=== PATIENT | female | born 1950 | race Caucasian/White ===

== ENCOUNTER 2017-10-10 17:30 | Observation (INO) | payer MEDICARE ==
[~2017-10-10] VITALS: Ht 157.5 cm; Wt 53.1 kg
[~2017-10-10 17:30] MED LIST: ACETAMINOPHEN325 MG PO; ADVAIR HFA [SP]12 GM INH; ASCORBIC ACID500 MG PO; ATARAX 25 MG TA25 MG PO; BAYER CHEWABLE81 MG PO; CELEXA10 MG PO; COLACE100 MG PO; COREG 3.1253.125 MG PO; COREG25 MG PO; DIOVAN320 MG PO; DULCOLAX10 MG/SUPP RC; FLORAJEN3 CAPS460 MG PO; FLORANEX / LACT1 TAB PO; FOSRENOL1000 MG PO; GABAPENTIN100 MG PO; GLYCOLAX527 GM PO; HYDRALAZINE HC100 MG PO; HYDROCODON-ACE1 EAC7 PO; KAYEXALATE15 G/60 ML PO; LASIX20 MG PO; LEVAQUIN500 MG PO; LISINOPRIL10 MG PO; MUCINEX600 MG PO; MULTIPLE VITAMI1 TA1 PO; NEURONTIN 300300 MG PO; NICODERM C1 PATCH .1 TRANSDERM; NIFEDIPINE ER60 MG PO; NORVASC5 MG PO; OMNICEF300 MG PO; PLAVIX75 MG PO; PROAIR HFA8.5 GM INH; PROTONIX40 MG PO; REMERON15 MG PO; RENA-VITE TABL0.8 MG PO; RENAGEL800 MG PO; RENVELA2.4 GM PO; SINGULAIR10 MG PO; XANAX0.25 MG PO; ZOFRAN4 MG PO
[2017-10-10 18:39] VITALS: BP 166/70
[2017-10-10 19:21] LABS: BASOPHILS 0.2 % (0-2); EOSINOPHILS 1.8 % (0-7); HEMOGLOBIN 10.8 g/dL (12-16); IMMATURE GRANULOCYTES 0.3 % (0-5); LYMPHOCYTES 12.6 % (15-50); MCH 32.7 pg (26.0-34.0); MCHC 30.9 g/dL (31.0-37.0); MCV 106.1 fL (80.0-100.0); MEAN PLATELET VOLUME 9.7 fL (7.4-10.4); MONOCYTES 5.2 % (2-11); NEUTROPHILS 79.9 % (40-80); PLATELET COUNT 166 10x3/uL (130-400); RDW 14.9 % (11.5-14.5); WBC 15.2 10x3/uL (4.8-10.8)
[2017-10-10 19:36] LABS: ALBUMIN 3.6 g/dL (3.4-5.0); ALKALINE PHOSPHATASE 109 U/L (46-116); ALT (SGPT) 39 U/L (10-68); CALC OSMOLALITY 301 mosm/kg (275-300); CALCIUM 10.1 mg/dL (8.5-10.1); CHLORIDE - SERUM 102 mmol/L (98-107); CREATININE - SERUM 7.8 mg/dL (0.6-1.3); POTASSIUM - SERUM 5.8 mmol/L (3.5-5.1); PROTEIN - SERUM 7.7 g/dL (6.4-8.2); SODIUM 144 mmol/L (136-145); UREA NITROGEN 52 mg/dL (7-18); eGFR NON AFRICAN AMERICAN 5 mL/min (90-120)
[2017-10-10 19:43] LABS: GLUCOSE 125 mg/dL (74-106)
[2017-10-10 19:45] VITALS: BP 178/87
[2017-10-10 19:52] LABS: CREATINE KINASE 20 UL (21-215)
[2017-10-10 19:54] LABS: PRO BNP 40525 pg/mL (0-125)
[2017-10-10 19:55] LABS: TROPONIN-I 0.133 ng/mL (0.000-0.060)
[2017-10-10 22:04] VITALS: BP 178/75
[2017-10-11 03:12] VITALS: BP 153/61; BMI 22.0
[2017-10-11] MEDS ORDERED: RENA-VITE TABL0.8 MG PO (04:05)
[2017-10-11] MEDS ORDERED: SPS SUSPENSION (04:09)
[2017-10-11] MEDS ORDERED: FOSRENOL1000 MG PO (04:15)
[2017-10-11] MEDS ORDERED: RENVELA800 MG PO (04:52)
[2017-10-11 05:30] LABS: BASOPHILS 0.2 % (0-2); EOSINOPHILS 3.4 % (0-7); HEMATOCRIT 30.4 % (36.0-48.0); HEMOGLOBIN 9.4 g/dL (12-16); IMMATURE GRANULOCYTES 0.3 % (0-5); MCH 32.2 pg (26.0-34.0); MCHC 30.9 g/dL (31.0-37.0); MEAN PLATELET VOLUME 9.9 fL (7.4-10.4); MONOCYTES 6.5 % (2-11); NEUTROPHILS 58.6 % (40-80); PLATELET COUNT 175 10x3/uL (130-400); RBC 2.92 10x6/uL (4.00-5.40); RDW 14.8 % (11.5-14.5)
[2017-10-11 05:43] LABS: MCV 104.1 fL (80.0-100.0)
[2017-10-11 06:18] LABS: ALBUMIN 3.2 g/dL (3.4-5.0); BILIRUBIN - TOTAL 0.36 mg/dL (0.2-1.3); CALCIUM 9.7 mg/dL (8.5-10.1); CARBON DIOXIDE 27.4 mmol/L (21.0-32.0); CREATININE - SERUM 8.4 mg/dL (0.6-1.3); POTASSIUM - SERUM 5.4 mmol/L (3.5-5.1); PROTEIN - SERUM 6.7 g/dL (6.4-8.2)
[2017-10-11 09:53] VITALS: BP 172/67
[2017-10-11 12:54] VITALS: Ht 157.5 cm; Wt 53.1 kg
[2017-10-11 16:45] VITALS: BP 148/50
[2017-10-11 20:00] VITALS: BP 147/51
[2017-10-12] VITALS: BP 152/49
[2017-10-12 04:00] VITALS: BP 158/59
[2017-10-12 08:29] VITALS: BP 150/62
[2017-10-12 11:45] VITALS: BP 145/49
== END 2017-10-12 16:36 ==
LOC: D.ER 17:30 → D.EDHOLD 21:05 → OBSVTIME 21:05 → D.MS 23:35 → D.M2 10-11 18:47
PROVIDERS: Family Medicine; Internal Medicine Nephrology
DX: E87.5 Hyperkalemia (principal); I13.2 Hypertensive heart and chronic kidney disease with heart failure and with stage 5 chronic kidney disease, or end stage renal disease; I50.9 Heart failure, unspecified; N18.6 End stage renal disease; Z99.2 Dependence on renal dialysis; J44.9 Chronic obstructive pulmonary disease, unspecified; I69.351 Hemiplegia and hemiparesis following cerebral infarction affecting right dominant side; I25.10 Atherosclerotic heart disease of native coronary artery without angina pectoris; Z95.5 Presence of coronary angioplasty implant and graft

== ENCOUNTER 2017-10-18 01:58 | Inpatient (IN) | payer MEDICARE ==
[~2017-10-18] VITALS: Ht 157.5 cm; Wt 53.1 kg
--- NOTE | ~2017-10-18 | DS ---
PATIENT:PARISH DAMICO :[birth year] MEDICAL RECORD: [id number] DISCHARGE SUMMARY ADMISSION DATE: 10/18/17 DISCHARGE DATE: 10/20/17 HISTORY OF PRESENT ILLNESS: Ms. Damico is a 66-year-old white female with end-stage renal disease and chronic care home confinement, seen by me on a monthly basis in [facility]. Was seen by me 2 weeks ago and stable. Current history dates to the evening of admission with the onset of shortness of breath. She had not missed her dialysis. Apparently, there had been a large fluid intake, was found in Emergency Room to have not only volume fluid overload and pulmonary edema, but also to have hyperkalemia with potassium of 5.9. HOSPITAL COURSE: She underwent emergent dialysis. Her medications were readjusted and she was back to baseline at the time of discharge. She had no major intercurrent events. Her last lab and vital signs all were stable and she was requesting discharge back to care home. DISCHARGE DIAGNOSES: 1. Acute pulmonary edema with biventricular cardiac failure on the basis of volume overload due to excessive fluid intake at the care home. 2. Hyperkalemia due to oral intake, resolved post-dialysis. 3. End-stage renal disease. 4. Hypertension. 5. Chronic erythropoietin dependent anemia. PLAN: The patient will be discharged back to the care home following dialysis today. I will see her in [facility] next week. She will continue her renal diet, ambulation as tolerated. DISCHARGE MEDICATIONS. We will continue Epogen in the dialysis unit, Nephro-Cheko 1 daily, Renvela 800 t.i.d., Coreg 3.125 daily, MiraLax p.r.n., Protonix 20 mg daily, Singulair 10 mg bedtime, Remeron 7.5 bedtime, Neurontin 100 t.i.d., baby aspirin 1 daily, Xanax 0.25 at bedtime, Plavix 75 mg daily. TRANSINT:[id number] Voice Confirmation ID: [id number] DOCUMENT ID: [id number] ROSA JANG MD at 0653 CC: [id number] DICTATION DATE: 10/20/17 0732 NURSE GENERAL DUTY: 10/20/17 0836 DIS IN 10/20/17 [id number] [place] [address]
[~2017-10-18 01:58] MED LIST changes: +RENVELA800 MG PO; +SPS SUSPENSION
[2017-10-18] MEDS ORDERED: CALMOSEPTINE OI71 GM TOPICAL (02:32)
[2017-10-18] MEDS ORDERED: KAYEXALATE15 G/60 ML PO (02:34)
[2017-10-18 02:38] VITALS: BP 176/77; BMI 21.4
[2017-10-18 05:13] VITALS: BP 147/46
[2017-10-18 07:54] LABS: BASOPHILS 0.1 % (0-2); EOSINOPHILS 0.1 % (0-7); HEMOGLOBIN 9.4 g/dL (12-16); IMMATURE GRANULOCYTES 0.3 % (0-5); LYMPHOCYTES 13.8 % (15-50); MCH 32.1 pg (26.0-34.0); MCHC 31.3 g/dL (31.0-37.0); MCV 102.4 fL (80.0-100.0); MEAN PLATELET VOLUME 9.7 fL (7.4-10.4); MONOCYTES 2.5 % (2-11); NEUTROPHILS 83.2 % (40-80); PLATELET COUNT 233 10x3/uL (130-400); RBC 2.93 10x6/uL (4.00-5.40); RDW 15.7 % (11.5-14.5); WBC 7.8 10x3/uL (4.8-10.8)
[2017-10-18 08:05] VITALS: BP 122/38
[2017-10-18 08:37] LABS: CARBON DIOXIDE 25.5 mmol/L (21.0-32.0); CREATININE - SERUM 8.8 mg/dL (0.6-1.3)
[2017-10-18 08:49] LABS: ANION GAP 22.4 mmol/L (8-16); POTASSIUM - SERUM 5.9 mmol/L (3.5-5.1)
[2017-10-18 13:23] VITALS: Ht 157.5 cm; Wt 53.1 kg
[2017-10-18 14:41] VITALS: BP 131/50
[2017-10-18 16:01] VITALS: BP 128/54
[2017-10-18 20:37] VITALS: BP 102/36
[2017-10-19 00:41] VITALS: BP 143/85
[2017-10-19 05:30] VITALS: BP 150/58
[2017-10-19 05:51] LABS: BASOPHILS 0.1 % (0-2); EOSINOPHILS 1.1 % (0-7); HEMATOCRIT 29.7 % (36.0-48.0); HEMOGLOBIN 9.3 g/dL (12-16); IMMATURE GRANULOCYTES 0.3 % (0-5); LYMPHOCYTES 24.9 % (15-50); MCH 32.2 pg (26.0-34.0); MCHC 31.3 g/dL (31.0-37.0); MCV 102.8 fL (80.0-100.0); MEAN PLATELET VOLUME 9.9 fL (7.4-10.4); MONOCYTES 7.9 % (2-11); NEUTROPHILS 65.7 % (40-80); PLATELET COUNT 235 10x3/uL (130-400); RBC 2.89 10x6/uL (4.00-5.40); RDW 15.9 % (11.5-14.5)
[2017-10-19 05:59] LABS: WBC 12.1 10x3/uL (4.8-10.8)
[2017-10-19 06:25] LABS: ANION GAP 17.8 mmol/L (8-16); CALCIUM 10.5 mg/dL (8.5-10.1); CARBON DIOXIDE 27.8 mmol/L (21.0-32.0); PHOSPHOROUS 7.5 mg/dL (2.5-4.9)
[2017-10-19 06:27] LABS: CREATININE - SERUM 6.2 mg/dL (0.6-1.3); POTASSIUM - SERUM 4.6 mmol/L (3.5-5.1)
[2017-10-19 08:05] VITALS: BP 170/60
[2017-10-19 11:41] VITALS: BP 129/42
[2017-10-19 15:48] VITALS: BP 150/48
[2017-10-19 21:41] VITALS: BP 165/56
[2017-10-20 06:20] VITALS: BP 182/56
[2017-10-20 06:48] LABS: ANION GAP 20.7 mmol/L (8-16); CALCIUM 9.6 mg/dL (8.5-10.1); CARBON DIOXIDE 27.9 mmol/L (21.0-32.0); PHOSPHOROUS 7.3 mg/dL (2.5-4.9); POTASSIUM - SERUM 4.6 mmol/L (3.5-5.1)
[2017-10-20 06:50] LABS: CREATININE - SERUM 7.8 mg/dL (0.6-1.3)
[2017-10-20 07:14] LABS: BASOPHILS 0.3 % (0-2); EOSINOPHILS 3.7 % (0-7); HEMATOCRIT 28.5 % (36.0-48.0); IMMATURE GRANULOCYTES 0.3 % (0-5); LYMPHOCYTES 40.2 % (15-50); MCH 32.1 pg (26.0-34.0); MCHC 31.6 g/dL (31.0-37.0); MCV 101.8 fL (80.0-100.0); MEAN PLATELET VOLUME 9.8 fL (7.4-10.4); MONOCYTES 6.1 % (2-11); NEUTROPHILS 49.4 % (40-80); PLATELET COUNT 223 10x3/uL (130-400); RDW 15.9 % (11.5-14.5); WBC 10.8 10x3/uL (4.8-10.8)
[2017-10-20 08:28] VITALS: BP 144/43
[2017-10-20] MEDS ORDERED: NEPHRO-VITE RX1 TAB PO (13:06)
[2017-10-20 16:09] VITALS: BP 154/49
== END 2017-10-20 16:16 | DRG 291 ==
LOC: D.MS 01:58
PROVIDERS: Internal Medicine Nephrology
PROC: 5A1D70Z Performance of Urinary Filtration, Intermittent, Less than 6 Hours Per Day (ICD-10-PCS; principal; 2017-10-18)
DX: I13.2 Hypertensive heart and chronic kidney disease with heart failure and with stage 5 chronic kidney disease, or end stage renal disease (principal); N18.6 End stage renal disease; R09.2 Respiratory arrest; I69.351 Hemiplegia and hemiparesis following cerebral infarction affecting right dominant side; J44.1 Chronic obstructive pulmonary disease with (acute) exacerbation; E87.5 Hyperkalemia; Z99.2 Dependence on renal dialysis; D63.1 Anemia in chronic kidney disease; I25.10 Atherosclerotic heart disease of native coronary artery without angina pectoris; I50.82 Biventricular heart failure

== ENCOUNTER 2017-11-29 07:09 | Inpatient (IN) | payer MEDICARE ==
[~2017-11-29] VITALS: Ht 157.5 cm; Wt 50.9 kg
[2017-11-29] VITALS (7 sets, daily range): BP systolic 126–171; BP diastolic 42–62; Ht 157.5 cm; Wt 50.9 kg
[~2017-11-29 07:09] MED LIST changes: +CALMOSEPTINE OI71 GM TOPICAL; +NEPHRO-VITE RX1 TAB PO
[2017-11-29] MEDS ORDERED: NORVASC5 MG PO (07:52)
[2017-11-29] MEDS ORDERED: COREG12.5 MG PO (07:54)
[2017-11-29] MEDS ORDERED: CELEXA10 MG PO (07:55)
[2017-11-29] MEDS ORDERED: CATAPRES0.1 MG PO (07:57)
[2017-11-29] MEDS ORDERED: FUROSEMIDE20 MG PO (07:59)
[2017-11-29] MEDS ORDERED: MUCINEX600 MG PO (08:00)
[2017-11-29] MEDS ORDERED: HYDRALAZINE HC100 MG PO (08:01)
[2017-11-29] MEDS ORDERED: ZESTRIL10 MG PO (08:02)
[2017-11-29] MEDS ORDERED: CLARITIN 10 MG10 MG PO (08:03)
[2017-11-29] MEDS ORDERED: MOBIC7.5 MG PO (08:03)
[2017-11-29] MEDS ORDERED: FLINTSTONE1 TAB.CHEW PO (08:04)
[2017-11-29] MEDS ORDERED: NIFEDIPINE ER60 MG PO (08:04)
[2017-11-29] MEDS ORDERED: ESTER-C 500 MG1 TAB PO (08:06)
[2017-11-29] MEDS ORDERED: GLYCOLAX527 GM PO (08:06)
[2017-11-29] MEDS ORDERED: NICODERM C1 PATCH .1 TRANSDERM (08:06)
[2017-11-29] MEDS ORDERED: DIOVAN320 MG PO (08:06)
[2017-11-30 05:48] LABS: BASOPHILS 0.3 % (0-2); EOSINOPHILS 5.5 % (0-7); HEMATOCRIT 33.2 % (36.0-48.0); HEMOGLOBIN 10.2 g/dL (12-16); IMMATURE GRANULOCYTES 0.2 % (0-5); LYMPHOCYTES 36.7 % (15-50); MCH 32.6 pg (26.0-34.0); MCHC 30.7 g/dL (31.0-37.0); MCV 106.1 fL (80.0-100.0); MONOCYTES 7.2 % (2-11); NEUTROPHILS 50.1 % (40-80); PLATELET COUNT 199 10x3/uL (130-400); RBC 3.13 10x6/uL (4.00-5.40); RDW 16.1 % (11.5-14.5)
[2017-11-30 06:07] LABS: ANION GAP 13.6 mmol/L (8-16); CALCIUM 9.3 mg/dL (8.5-10.1); CARBON DIOXIDE 30.2 mmol/L (21.0-32.0); CREATININE - SERUM 6.6 mg/dL (0.6-1.3); PHOSPHOROUS 5.4 mg/dL (2.5-4.9); POTASSIUM - SERUM 4.8 mmol/L (3.5-5.1); VANCOMYCIN - RANDOM 7.8 ug/mL (10.0-20.0)
[2017-11-30 08:56] VITALS: BP 117/53
[2017-11-30 11:26] VITALS: BP 140/53
[2017-11-30] MEDS ORDERED: LEVAQUIN250 MG PO (12:44)
[2017-11-30] MEDS ORDERED: IPRAT-ALBUT 0.5-3 ML UPD (12:45)
[2017-11-30 15:10] VITALS: BP 126/45
== END 2017-11-30 16:36 | DRG 291 ==
LOC: OBSVTIME → D.ICU 07:09 → D.OPS 07:09 → OBSVTIME 07:09 → D.ICU 08:58 → D.M2 08:58 → D.ICU 08:58 → D.M2 13:54 → D.ICU 13:54 → D.M2 11-30 16:36
PROVIDERS: Internal Medicine Nephrology
DX: I13.2 Hypertensive heart and chronic kidney disease with heart failure and with stage 5 chronic kidney disease, or end stage renal disease (principal); N18.6 End stage renal disease; J81.1 Chronic pulmonary edema; I69.351 Hemiplegia and hemiparesis following cerebral infarction affecting right dominant side; I50.9 Heart failure, unspecified; Z99.2 Dependence on renal dialysis; E87.5 Hyperkalemia; J44.9 Chronic obstructive pulmonary disease, unspecified; Z91.19 Patient's noncompliance with other medical treatment and regimen

== ENCOUNTER 2018-03-03 13:51 | Observation (INO) | payer MEDICARE ==
[~2018-03-03] VITALS: Ht 157.5 cm; Wt 52.2 kg
--- NOTE | ~2018-03-03 | MORECARE ---
CASE MANAGEMENT DISCHARGE SUMMARY PATIENT: PARISH MOBLEY UNIT: [id number] ADM DATE: 03/03/18 AGE: 67 : 49 SEX: F ROOM/BED: D.5302 AUTHOR: JAVON COTTON PHYSICIAN: REFERRING PHYSICIAN: DOMITILA OLIVEIRA MD DATE OF SERVICE: 03/04/18 Discharge Plan Patient Name: PARISH MOBLEY Facility: [facility]:[place] : 1950 Planned Disposition: Nursing Facility [facility] Cert Anticipated Discharge Date: 03/04/18 Discharge Date: Expected LOS: 1 Initial Reviewer: [email or web address] Initial Review Date: 03/04/2018 Generated: 03/04/18 4:54 pm DCPIA - Discharge Planning Initial Assessment Updated by [email or web address]: Singh Owen on 03/04/18 3:52 pm * Is the patient Alert and Oriented? Yes * How many steps to enter\exit or inside your home? NONE * PCP DR. YEUNG * [facility] * Preadmission Environment Fixed Wing Aircraft Crew Chief Detention * Facility Name [facility] * ADLs Partial Dependent * Partial ADLs (Assistance needed) Ambulation Bathing Medication Management Transfers * Equipment Other * Other Equipment OXYGEN AT NIGHT ONLY ALL EQUIPMENT PROVIDED BY [facility] * List name and contact numbers for known caregivers / representatives who currently or will assist patient after discharge: UNCLE WILEY, NICOLA MOBLEY, DTR, * Verbal permission to speak to the caregivers and representatives has been obtained from the patient. Yes * Community resources currently utilized Other * Please name any agencies selected above. [facility] [place] [facility], [address], [facility] * Additional services required to return to the preadmission environment? No * Can the patient safely return to the preadmission environment? Yes * Has this patient been hospitalized within the prior 30 days at any hospital? No Last DP export: 03/04/18 2:25 Patient Name: PARISH MOBLEY Page [id number] at 0990 All edits/amendments must be made on the electronic document DICTATION DATE: 03/04/18 4888 SOLID WASTE COLLECTION WORKER: PATRICIA 03/04/18 1554 RPT#: [id number] DC DATE: STATUS: ADM IN [facility] [address] [place] [address] END OF REPORT
--- NOTE | ~2018-03-03 | MORECARE ---
CASE MANAGEMENT DISCHARGE SUMMARY PATIENT: PARISH MOBLEY UNIT: [id number] ADM DATE: 03/03/18 AGE: 67 : 49 SEX: F ROOM/BED: D.3496 AUTHOR: JAVON COTTON PHYSICIAN: REFERRING PHYSICIAN: DOMITILA OLIVEIRA MD DATE OF SERVICE: 03/04/18 Discharge Plan Patient Name: PARISH MOBLEY [facility] [facility] 1950 Planned Disposition: Nursing Facility [facility] Cert Anticipated Discharge Date: 03/04/18 Discharge Date: Expected LOS: 1 Initial Reviewer: [email or web address] Initial Review Date: 03/04/2018 Generated: 03/04/18 4:25 pm External Providers External Provider: [facility] Next Contact Date: 03/04/2018 Service Request Date: Service Type: Resolution: Reviewer: Comments: Patient Name: PARISH MOBLEY Page [id number] at 1525 All edits/amendments must be made on the electronic document DICTATION DATE: 03/04/18 1525 CONSTRUCTION HELPER: PATRICIA 03/04/18 1525 RPT#: [id number] OR DATE: STATUS: ADM IN [facility] [address] [place] [address] END OF REPORT
--- NOTE | ~2018-03-03 | MORECARE ---
CASE MANAGEMENT DISCHARGE SUMMARY PATIENT: PARISH MOBLEY UNIT: [id number] ADM DATE: 03/03/18 AGE: 67 : 49 SEX: F ROOM/BED: D.6784 AUTHOR: LULA,DOC PHYSICIAN: REFERRING PHYSICIAN: DOMITILA OLIVEIRA MD DATE OF SERVICE: 03/04/18 Discharge Plan Patient Name: PARISH MOBLEY Facility: [facility]:[place] : 1950 Planned Disposition: Nursing Facility [facility] Cert Anticipated Discharge Date: 03/04/18 Discharge Date: Expected LOS: 1 Initial Reviewer: [email or web address] Initial Review Date: 03/04/2018 Generated: 03/04/18 5:02 pm Comments DCP- Discharge Planning Updated by [email or web address]: Singh Owen on 03/04/18 2:[address] Patient Name: PARISH MOBLEY Admission Status: ER Accout number: [id number] Admission Date: 03-03-2018 : 1950 Admission Diagnosis: Attending: DOMITILA OLIVEIRA Current LOS: 1 Anticipated DC Date: 03-04-2018 Planned Disposition: Nursing Facility [facility] Cert Primary Insurance: MEDICARE A & B PLANNED EXTERNAL PROVIDER: [employer], LONG TERM CARE MEDICAID BED Discharge Planning Comments: CM RECEIVED DISCHARGE ORDERS, ATTEMPTED TO MEET WITH PT IN ROOM AT 1200 AND 1400 HOURS, PT OUT TO DIALYSIS. CM MET WITH PT UPON HER RETURN. PT REPORTS LIVING AT [facility], IS ON OXYGEN AT NIGHT ONLY AND GOES TO DIALYSIS IN [place] ON MWF SCHEDULE, TRANSPORT BY THE [facility]. PT ASKED CM TO HURRY UP AND CALL [facility] SO THE [facility] WILL PICK HER UP REPORTING THEY LEAVE AT 4PM. CM CALLED [facility], , SPOKE TO SOFÍA WHO REPORTS THEY WILL ACCEPT PT TODAY, THEY DO NOT HAVE A VAN FOR TRANSPORT, ASKED CM TO CALL FAMILY TO GET TRANSPORTATION BACK TO [facility]. YAYO Boyce REPORTS PT SHOULD NOT NEED OXYGEN, SHE IS ONLY ON NIGHTTIME OXYGEN AT THE [facility]. CM SPOKE TO PT WHO ASKED CM TO CALL [facility] OR [facility]. CM CALLED [facility] ESC[facility], ; [facility] REPORTS HE AND NICOLA ARE IN [place] [employer] AND CAN LEAD JAVA DEVELOPER ARCHITECT PT IN A COUPLE OF HOURS AND TRANSPORT BACK TO [facility]. CM NOTIFIED PT AND BEDSIDE NURSE. CM FAXED DISCHARGE INFORMATION TO [facility] AT [phone]. NURSE REPORT TO BE CALLED TO SOFÍA AT [facility] AT [phone]. FAMILY TO TRANSPORT. Upholstery Department Supervisor: Singh Owen DCPIA - Discharge Planning Initial Assessment Updated by [email or web address]: Singh Owen on 03/04/18 3:52 pm * Is the patient Alert and Oriented? Yes * How many steps to enter\exit or inside your home? NONE * PCP DR. YEUNG * [facility] * Preadmission Environment Char Conveyor Tender Mcfp * Facility Name [facility] * ADLs Partial Dependent * Partial ADLs (Assistance needed) Ambulation Bathing Medication Management Transfers * Equipment Other * Other Equipment OXYGEN AT NIGHT ONLY ALL EQUIPMENT PROVIDED BY [facility] * List name and contact numbers for known caregivers / representatives who currently or will assist patient after discharge: UNCLE WILEY, NICOLA MOBLEY DTR, * Verbal permission to speak to the caregivers and representatives has been obtained from the patient. Yes * Community resources currently utilized Other * Please name any agencies selected above. [facility], [facility] [place], MWF, [address]130, [facility] * Additional services required to return to the preadmission environment? No * Can the patient safely return to the preadmission environment? Yes * Has this patient been hospitalized within the prior 30 days at any hospital? No Last DP export: 03/04/18 2:54 Patient Name: PARISH MOBLEY Page [id number] at 1602 All edits/amendments must be made on the electronic document DICTATION DATE: 03/04/18 1601 AURIST: PATRICIA 03/04/18 1601 RPT#: [id number] DC DATE: STATUS: ADM IN [facility] [address] [place] [address] END OF REPORT
--- NOTE | ~2018-03-03 | EC ---
PATIENT:PARISH MOBLEY DATE OF SERVICE: 03/03/18 SEX: F MEDICAL RECORD: [id number] DATE OF : [birth year] LOCATION:D.M2 D.211 AGE OF PATIENT: 67 ADMISSION DATE: 03/03/18 REFERRING PHYSICIAN: INTERPRETING PHYSICIAN: MAYA SAHA MD ECHOCARDIOGRAM REPORT ECHO CHARGES 4 ECHO COMPLETE Date: 03/04/18 CLINICAL DIAGNOSIS: CHEST PAIN HX CAD ECHOCARDIOGRAPHIC MEASUREMENTS (adult normal given) AC root (d.<3.7cm) 3.0 cm LV Septum d (<1.2 cm> 1.3 cm Valve Excursion 0.6 cm LV Septum (systole) 1.4 cm Left Atria (s.<4.0cm> 5.2 cm LVPW d(<1.2cm) 1.5 cm RV (d.<2.3cm) 3.1 cm LVPW (sytole) 1.6 cm LV diastole(<5.6CM) 5.7 cm MV E-F(>70mm/sec) cm LV systole 4.3 cm LVOT Diameter 1.3 cm MV exc.(>10mm) 1.3 cm Est.ejection fraction (50-75%) % DOPPLER: LVIT cm/sec A 114 cm/sec E 141 cm/sec LA cm/sec RVSP 28 mmHg LVOT 147 cm/sec AOP1/2T m/s Asc. Ao 207 cm/sec RVOT 69 cm/sec RA cm/sec PA 159 cm/sec AV Gradient Peak 17.12mmHg AV Mean 9.58 mmHg AV Area 1.0 cm MV Gradient Peak 14.44mmHg MV Mean 4.49 mmHg MV Area cm COMMENTS: Program Writer: 2 ROHIT WILLIS Granite [employer] Terrazzo Finisher: 4 Dr. Saha TAPE# PACS Pericardial Effusion N DATE OF SERVICE: PROCEDURE: Transthoracic echocardiogram. FINDINGS: 1. Left ventricle has mild concentric left ventricular hypertrophy, ejection fraction of 65%. Inflow characteristics consistent with mild diastolic dysfunction. 2. The left atrium is moderately dilated. 3. The aortic valve has moderate aortic stenosis, peak pressure gradient of 20 ECHOCARDIOGRAM REPORT [id number] PARISH MOBLEY mmHg. 4. The mitral valve has mild mitral regurgitation. 5. Tricuspid valve has mild tricuspid regurgitation. RVSP of 28 mmHg. 6. The right ventricle is mildly dilated. CONCLUSIONS: The patient has evidence of mild hypertensive heart disease with left ventricular hypertrophy, preserved LV systolic function. The patient has evidence of [id number] aortic stenosis. TRANSINT:[id number] Voice Confirmation ID: [id number] DOCUMENT ID: [id number] MAYA SAHA MD at 0916 CC: [id number] DICTATION DATE: 03/04/18 1313 ECOTHERAPIST: 03/04/18 1515 DIS IN 03/04/18 [address] [id number] [place] [id number]
[~2018-03-03 13:51] MED LIST changes: +CATAPRES0.1 MG PO; +CLARITIN 10 MG10 MG PO; +COREG12.5 MG PO; +ESTER-C 500 MG1 TAB PO; +FLINTSTONE1 TAB.CHEW PO; +FUROSEMIDE20 MG PO; +IPRAT-ALBUT 0.5-3 ML UPD; +LEVAQUIN250 MG PO; +MOBIC7.5 MG PO; +ZESTRIL10 MG PO
[2018-03-03 14:41] VITALS: BP 157/47
[2018-03-03 14:41] LABS: BASOPHILS 0.2 % (0-2); EOSINOPHILS 0.9 % (0-7); HEMATOCRIT 34.1 % (36.0-48.0); HEMOGLOBIN 10.3 g/dL (12-16); IMMATURE GRANULOCYTES 0.2 % (0-5); LYMPHOCYTES 6.9 % (15-50); MCH 30.1 pg (26.0-34.0); MCHC 30.2 g/dL (31.0-37.0); MCV 99.7 fL (80.0-100.0); MEAN PLATELET VOLUME 10.4 fL (7.4-10.4); MONOCYTES 2.1 % (2-11); NEUTROPHILS 89.7 % (40-80); PLATELET COUNT 214 10x3/uL (130-400); RBC 3.42 10x6/uL (4.00-5.40); RDW 16.6 % (11.5-14.5); WBC 12.5 10x3/uL (4.8-10.8)
[2018-03-03 14:48] LABS: ALBUMIN 3.2 g/dL (3.4-5.0); ALKALINE PHOSPHATASE 83 U/L (46-116); ALT (SGPT) 13 U/L (10-68); BILIRUBIN - TOTAL 1.01 mg/dL (0.2-1.3); CALC OSMOLALITY 287 mosm/kg (275-300); CALCIUM 10.2 mg/dL (8.5-10.1); CARBON DIOXIDE 28.2 mmol/L (21.0-32.0); CHLORIDE - SERUM 102 mmol/L (98-107); CREATININE - SERUM 4.2 mg/dL (0.6-1.3); GLUCOSE 110 mg/dL (74-106); POTASSIUM - SERUM 3.7 mmol/L (3.5-5.1); PROTEIN - SERUM 6.9 g/dL (6.4-8.2); SODIUM 142 mmol/L (136-145); UREA NITROGEN 25 mg/dL (7-18); eGFR NON AFRICAN AMERICAN 11 mL/min (90-120)
[2018-03-03 14:57] LABS: APTT 40.7 SECONDS (22.8-39.4)
[2018-03-03 14:58] LABS: INR 1.19 (0.85-1.17); PROTIME 14.6 SECONDS (11.6-15.0)
[2018-03-03 15:05] LABS: CKMB 0.8 U/L (0.0-3.6); CREATINE KINASE 15 UL (21-215); MAGNESIUM - SERUM 2.1 mg/dL (1.8-2.4)
[2018-03-03 15:30] LABS: TROPONIN-I 1.393 ng/mL (0.000-0.060)
[2018-03-03 16:27] VITALS: BP 177/56; BMI 21.0
[2018-03-03 20:31] LABS: TROPONIN-I 1.122 ng/mL (0.000-0.060)
[2018-03-04 01:49] LABS: BASOPHILS 0.1 % (0-2); EOSINOPHILS 0.1 % (0-7); HEMATOCRIT 28.1 % (36.0-48.0); HEMOGLOBIN 8.6 g/dL (12-16); IMMATURE GRANULOCYTES 0.1 % (0-5); LYMPHOCYTES 14.5 % (15-50); MCH 29.8 pg (26.0-34.0); MCHC 30.6 g/dL (31.0-37.0); MEAN PLATELET VOLUME 9.9 fL (7.4-10.4); MONOCYTES 6.8 % (2-11); NEUTROPHILS 78.4 % (40-80); PLATELET COUNT 208 10x3/uL (130-400); RBC 2.89 10x6/uL (4.00-5.40); RDW 16.5 % (11.5-14.5)
[2018-03-04 01:56] LABS: MCV 97.2 fL (80.0-100.0); WBC 6.8 10x3/uL (4.8-10.8)
[2018-03-04 02:25] LABS: ALBUMIN 2.7 g/dL (3.4-5.0); ALKALINE PHOSPHATASE 74 U/L (46-116); ALT (SGPT) 15 U/L (10-68); BILIRUBIN - TOTAL 0.85 mg/dL (0.2-1.3); CARBON DIOXIDE 25.2 mmol/L (21.0-32.0); CHLORIDE - SERUM 101 mmol/L (98-107); CKMB 0.9 U/L (0.0-3.6); CREATINE KINASE 15 UL (21-215); GLUCOSE 114 mg/dL (74-106); POTASSIUM - SERUM 3.7 mmol/L (3.5-5.1); PROTEIN - SERUM 6.5 g/dL (6.4-8.2); SODIUM 141 mmol/L (136-145); eGFR NON AFRICAN AMERICAN 9 mL/min (90-120)
[2018-03-04 02:29] LABS: CALC OSMOLALITY 289 mosm/kg (275-300); TROPONIN-I 0.999 ng/mL (0.000-0.060); UREA NITROGEN 36 mg/dL (7-18)
[2018-03-04 08:03] VITALS: BP 178/58
[2018-03-04 11:19] VITALS: BP 150/47
[2018-03-04 12:52] VITALS: Ht 157.5 cm; Wt 52.2 kg
[2018-03-04 15:50] VITALS: BP 146/42
== END 2018-03-04 16:45 ==
LOC: D.ER 13:51 → D.M2 15:04 → D.EDHOLD 15:04 → OBSVTIME 15:05 → D.M2 15:20
PROVIDERS: Family Medicine
DX: J81.0 Acute pulmonary edema (principal); J44.1 Chronic obstructive pulmonary disease with (acute) exacerbation; I12.0 Hypertensive chronic kidney disease with stage 5 chronic kidney disease or end stage renal disease; N18.6 End stage renal disease; I69.851 Hemiplegia and hemiparesis following other cerebrovascular disease affecting right dominant side; Z95.5 Presence of coronary angioplasty implant and graft; I25.10 Atherosclerotic heart disease of native coronary artery without angina pectoris